=== PATIENT | female | born 1980 | race Caucasian/White ===

== ENCOUNTER → 2022-02-10 12:10 | Outpatient (CLI) | payer OTHER, SELFPAY ==
--- NOTE | ~2022-02-10 | MM_ITS ---
EXAMINATION: MM screening [facility] BI w oksana HISTORY: Screening mammogram TECHNIQUE: Craniocaudal and mediolateral oblique 3-D tomosynthesis images were obtained and synthetic 2-D images were generated. CAD analysis was submitted and interpreted. COMPARISON: 04/30/2015, 08/21/2013 BREAST PARENCHYMAL COMPOSITION: The breasts are extremely dense, which lowers the sensitivity of mamm ography. FINDINGS: There is no suspicious mass, calcification, or architectural distortion to suggest malignan cy in either breast. There has been no suspicious interval change. IMPRESSION: 1. No mammographic evidence of malignancy. 2. Recommend routine screening mammography in one year. BI-RADS Category 1: Negative Reviewed, dictated and finalized at location A.
== END ==
PROVIDERS: PCP Physician Assistant Medical; Visit Provider Nurse Practitioner
DX: Z12.31 Encounter for screening mammogram for malignant neoplasm of breast (principal)
CPT/HCPCS: 77063; 77067

== ENCOUNTER 2022-03-09 11:29 | Day surgery (SDC) | payer OTHER, SELFPAY ==
[2022-01-12 14:35] VITALS: BMI 26.9
[2022-02-17 13:45] VITALS: BMI 25.6
[2022-03-09 11:44] VITALS: BMI 26.6
[2022-03-09 11:47] VITALS: BP 124/84; PULSE 102; RESP 14; TEMP 36.6; O2SAT 100
[2022-03-09] MEDS: LACTATED RINGERS 1,000 ML 150 ML IV CONT (12:30)
--- NOTE | 2022-03-09 12:37 | P.PNAN_ITS ---
Anes - Initial Pre Proc Eval Procedure: Operation Date: 03/09/22 13:00 Proposed Procedures p Diagnostic Colonoscopy - Krzysztof Liao MD Date/Time: 03/09/22 12:37 Surgeon: Krzysztof Liao MD Pre Op Diagnosis: Change in Bowel Habits and Abdominal Pain Patient Data Age: 41 Gender: F Height: 1.57 m Weight: 66 kg Allergies Allergy/AdvReac Type Severity Reaction Status Date / Time Cephalosporins Allergy Mild Hives / Verified 03/09/22 11:44 Red Face amoxicillin Allergy Unknown Unknown Verified 03/09/22 11:44 cefaclor Allergy Unknown Unknown Verified 03/09/22 11:44 iodine Allergy Unknown Unknown Verified 03/09/22 11:44 Contrast Media Allergy Intermediate Hives / Uncoded 03/09/22 11:44 Red Face EGG WHITE AdvReac Unknown Unknown Uncoded 03/09/22 11:44 Home Medications Medication Instructions Recorded Confirmed Type No Home Medications 03/09/22 03/09/22 History Patient hx anesthesia problems: none Family hx anesthesia problems: none Results Review: All pre-operative results and documents have been reviewed as part of the pre- operative evaluation. FOR[facility]LY [facility] Past Medical History Medical History (Updated 03/09/22 @ 12:37 by Jacques Diaz MD) Abdominal pain Surgical History Surgical History Hx of appendectomy Family History Family History Father Asthma Hypertension Heart disease Social History Social History Smoking status: Never smoker Second hand tobacco smoke exposure: No Alcohol intake: never Substance use: never Substance use type: does not use Living arrangements: with family Gender identity (if verbalized by the patient): Female Spiritual care concerns: No Anes - Eval Final PreProcedure Day of Procedure 03/09/22 12:37 Patient weight: overweight Heart: regular rate and rhythm Lungs: clear to auscultation Airway: Mallampati scale class II Neurological: alert and oriented Last oral intake: >/= 8 hours ASA classification: II Emergent: no Anesthetic plan: proceed Results Review: All pre-operative results and documents have been reviewed as part of the pre- operative evaluation. Informed Consent: The patient's anesthetic plan and its attendant risks and benefits were discussed with the patient/family/POA. Questions were solicited and answers provided to the satisfaction of the patient/family/POA.
--- NOTE | 2022-03-09 12:45 | PM.IMHP ---
H&P: HPI History of Present Illness Date/Time: 03/09/22 12:45 Chief Complaint: Abdominal pain. Narrative: This is a 41-year-old white female patient presents for colonoscopy. Patient recently seen by a nurse practitioner in the office. She develops rather low abdominal pain sometimes last for a day to day and a half. Often relieved after a bowel movement. She denies any change in her bowel habits. She has had no bleeding. No weight loss. She also reports similar pain after sexual intercourse. Patient has recent gynecological exam that was normal. Colonoscopy is recommended to exclude organic disease of the colon. She has not specifically tried stool softeners at present. Review of Systems Review of Systems: Review of systems noncontributory. FORMERLY [facility] Past Medical History Medical History (Updated 03/09/22 @ 12:47 by Krzysztof Liao MD) Abdominal pain Surgical History Surgical History Hx of appendectomy Family History Family History Father Asthma Hypertension Heart disease Social History Social History Smoking status: Never smoker Second hand tobacco smoke exposure: No Alcohol intake: never Substance use: never Substance use type: does not use Living arrangements: with family Gender identity (if verbalized by the patient): Female Spiritual care concerns: No Meds Home Medications and Allergies Home Medications Medication Instructions Recorded Confirmed Type No Home Medications 03/09/22 03/09/22 History Allergies Allergy/AdvReac Type Severity Reaction Status Date / Time Cephalosporins Allergy Mild Hives / Verified 03/09/22 11:44 Red Face amoxicillin Allergy Unknown Unknown Verified 03/09/22 11:44 cefaclor Allergy Unknown Unknown Verified 03/09/22 11:44 iodine Allergy Unknown Unknown Verified 03/09/22 11:44 Contrast Media Allergy Intermediate Hives / Uncoded 03/09/22 11:44 Red Face EGG WHITE AdvReac Unknown Unknown Uncoded 03/09/22 11:44 Exam Narrative: Physical exam reveals patient be alert. Vital signs stable. HEENT exam is unremarkable. Patient anicteric. Lungs are clear to auscultation and percussion. Heart is without murmur or extra sounds. Abdominal exam bowel sounds present soft nontender with no organomegaly. Digital external rectal exam is normal. Assessment and Plan Assessment and plan (1) Lower abdominal pain: Code(s): R10.30 - Lower abdominal pain, unspecified Status: Acute Assessment and Plan: Patient has had lower abdominal discomfort and change in bowel habits. Plan is for a trial of fiber supplement such as FiberCon 2 tabs p.o. b.i.d. . trial of Colace may also be beneficial. Colonoscopy is recommended will be performed to exclude organic disease of lower GI tract. (2) Change in bowel habit: Code(s): R19.4 - Change in bowel habit Status: Acute
[2022-03-09 13:28] VITALS: BP 89/58; PULSE 70; RESP 18; O2SAT 99
[2022-03-09 13:38] VITALS: BP 94/66; PULSE 70; RESP 18; O2SAT 100
--- NOTE | 2022-03-09 13:41 | WPDANESPN ---
Anes - Prog Note Post-Op Date/Time: 03/09/22 13:41 Cardiovascular status: normal Respiratory status: normal Airway patency: baseline Mental status: baseline Post-Op hydration status: normal Vital Signs: Last Vital Signs Temp 36.6 C 03/09/22 11:47 Pulse 70 03/09/22 13:28 Resp 18 03/09/22 13:28 BP 89/58 L 03/09/22 13:28 Pulse Ox 99 03/09/22 13:28 O2 Del Method Room Air 03/09/22 13:28 Pain Score (VAS): 0/10 I/O: Intake & Output 03/08/22 03/09/22 03/09/22 23:59 07:59 15:59 Intake Total 450 Balance 450 Patient Feedback: Patient satisfied with anesthetic care.
[2022-03-09 13:48] VITALS: BP 114/64; PULSE 74; RESP 20; O2SAT 100
== END 2022-03-09 13:59 | disposition home or self-care (01) ==
PROVIDERS: Visit Provider Internal Medicine Gastroenterology
PROC: 0DJD8ZZ Inspection of Lower Intestinal Tract, Via Natural or Artificial Opening Endoscopic (ICD-10-PCS; CPT 45378; principal; 2022-03-09 13:00)
DX: R10.30 Lower abdominal pain, unspecified (principal)
CPT/HCPCS: 45378

== ENCOUNTER 2023-02-11 10:37 | Outpatient (CLI) | payer OTHER, SELFPAY ==
--- NOTE | ~2023-02-11 | MM_ITS ---
EXAMINATION: MM screening [facility] BI w oksana HISTORY: Screening mammogram TECHNIQUE: Craniocaudal and mediolateral oblique 3-D tomosynthesis images were obtained and synthetic 2-D images were generated. CAD analysis was submitted and interpreted. COMPARISON: 02/10/2022, 04/30/2015, 08/21/2013 BREAST PARENCHYMAL COMPOSITION: The breasts are extremely dense, which lowers the sensitivity of mamm ography. FINDINGS: No suspicious mass, calcification, or architectural distortion are identified in either [place] ast to suggest malignancy. There has been no suspicious interval change. IMPRESSION: 1. No mammographic evidence of malignancy. 2. Recommend routine screening mammography in one year. BI-RADS Category 1: Negative Reviewed, dictated and finalized at location A.
== END 2023-02-11 10:38 ==
PROVIDERS: PCP Nurse Practitioner; Visit Provider Nurse Practitioner
DX: Z12.31 Encounter for screening mammogram for malignant neoplasm of breast (principal)
CPT/HCPCS: 77063; 77067

== ENCOUNTER 2024-04-13 13:21 | Outpatient (CLI) | payer OTHER, SELFPAY ==
--- NOTE | ~2024-04-13 | MM_ITS ---
EXAMINATION: MM screening [facility] w oksana HISTORY: Screening TECHNIQUE: Craniocaudal and mediolateral oblique 3-D tomosynthesis images were obtained and synthetic 2-D images were generated. CAD analysis was submitted and interpreted. COMPARISON: Comparison to multiple prior studies sequentially, with oldest reviewed study dated 04/04. BREAST PARENCHYMAL COMPOSITION: Dense: The breasts are extremely dense, which lowers the sensitivity of mammography. FINDINGS: There is no evidence of suspicious mass, calcification, or architectural distortion to sugg est malignancy in either breast. There has been no suspicious interval change. IMPRESSION: 1. No mammographic evidence of malignancy. 2. Recommend routine screening mammography in one year. BI-RADS Category 1: Negative Reviewed, dictated and finalized at location B.
== END 2024-04-13 13:22 | disposition home or self-care (01) ==
LOC: MICIMG 13:21
PROVIDERS: PCP Nurse Practitioner; Visit Provider Nurse Practitioner
DX: Z12.31 Encounter for screening mammogram for malignant neoplasm of breast (principal)
CPT/HCPCS: 77063; 77067

== ENCOUNTER 2025-04-15 14:00 | Outpatient (CLI) | payer OTHER, SELFPAY ==
--- NOTE | ~2025-04-15 | MM_ITS ---
EXAMINATION: MM screening [facility] w oksana HISTORY: Screening TECHNIQUE: Craniocaudal and mediolateral oblique 3-D tomosynthesis images were obtained and synthetic 2-D images were generated. CAD analysis was submitted and interpreted. COMPARISON: 02/11/2023 BREAST PARENCHYMAL COMPOSITION: The breasts are extremely dense, which lowers the sensitivity of mammography. FINDINGS: There is no evidence of suspicious mass, calcification, or architectural distortion to suggest malignancy. There has been no suspicious interval change. IMPRESSION: 1. No mammographic evidence of malignancy. Recommend routine screening mammography in one year. BI-RADS Category 2: Benign finding(s) Reviewed, dictated and finalized at location Q. IMPRESSION: 1. No mammographic evidence of malignancy. Recommend routine screening mammogra phy in one year. BI-RADS Category 2: Benign finding(s)
== END 2025-04-15 14:01 | disposition home or self-care (01) ==
LOC: MICIMG 14:01
PROVIDERS: PCP Nurse Practitioner; Visit Provider Nurse Practitioner
DX: Z12.31 Encounter for screening mammogram for malignant neoplasm of breast (principal)
CPT/HCPCS: 77063; 77067